=== PATIENT | female | born 1990 | race African-American/Black ===

== ENCOUNTER 2019-04-08 14:16 | Inpatient (IN) ==
[2019-04-08] MEDS ORDERED: hydrALAZINE 20 MG/1 ML VIAL IV PRN (15:22)
[2019-04-08] MEDS ORDERED: LACTATED RINGERS 500 ML IV PRN (15:22)
[2019-04-08] MEDS ORDERED: ONDANSETRON 4 MG/2 ML VIAL IV PRN (15:22)
[2019-04-08] MEDS ORDERED: LACTATED RINGERS 1,000 ML IV SCH (15:30)
[2019-04-08] MEDS: LACTATED RINGERS 1,000 ML IV SCH (15:37)
[2019-04-08 16:41] LABS: Basophils % 0.2 % (0.0-0.8); Eosinophils # 0.1 10*3/uL (0.0-0.87); Eosinophils % 1.4 % (0.00-10.9); Hematocrit 29.9 VOL% (35.7-47.0); Hemoglobin 9.8 GM/DL (12.0-16.0); Immature Granulocytes % 0.9 %; Immature Granulocytes Absolute 0.08 #; Lymphocytes # 1.5 10*3/uL (1.4-4.0); Lymphocytes % 16.6 % (21.3-54.2); Mean Corpuscular HGB Conc 32.8 GM/DL (32-36); Mean Corpuscular Volume 87.7 FL (87-102); Monocytes % 7.4 % (1.7-12.7); NRBC # 0.05 10*3/uL; Neutrophils % 73.5 % (38.7-73.9); Platelet Count 166 T/CUMM (130-400); Red Blood Count 3.41 MC/CUMM (3.8-5.5); Red Cell Distribution Width 13.2 % (9.3-17.3); White Blood Count 8.8 T/CUMM (4-12)
[2019-04-08 16:50] LABS: INR 0.9; PT Patient Result 9.3 SECS (9.6-12.2); Partial Thromboplastin Time 25.4 SECS (20.8-36.0)
[2019-04-08 17:08] LABS: Albumin 2.5 G/DL (3.4-5.0); Bilirubin,Direct 0.16 MG/DL (0.0-0.20); Bilirubin,Total 0.7 MG/DL (0.2-1.0); Calcium 8.4 MG/DL (8.5-10.1); Osmolality,Calculated 274.4 MOS/KG (273-304); Total Protein 6.7 G/DL (6.4-8.3); Uric Acid 7.6 MG/DL (2.6-6.0)
[2019-04-08] MEDS: MEPERIDINE 50 MG/1 ML VIAL IV PRN (19:40)
[2019-04-08] MEDS ORDERED: LABETALOL 200 MG TABLET PO SCH (21:00)
[2019-04-08] MEDS ORDERED: LABETALOL 100 MG TABLET ONE (21:38)
[2019-04-09] MEDS: LACTATED RINGERS 1,000 ML IV SCH ×2 (00:14→14:39)
[2019-04-09] MEDS ORDERED: OXYTOCIN/LR 20 UNIT/1,000 ML BAG IV ONE ×3 (02:09→18:23)
[2019-04-09] MEDS: ACETAMINOPHEN 500 MG TABLET PO PRN ×2 (02:58→11:30)
[2019-04-09] MEDS ORDERED: AMPICILLIN INJ 2,000 MG in SODIUM CHLORIDE 0.9% 100 ML IV ONE (04:00)
[2019-04-09] MEDS ORDERED: OXYTOCIN/LR 20 UNIT/1,000 ML BAG IV SCH (06:00)
[2019-04-09] MEDS: MEPERIDINE 50 MG/1 ML VIAL IV PRN (08:12)
[2019-04-09] MEDS: AMPICILLIN INJ 1,000 MG in SODIUM CHLORIDE 0.9% 100 ML IV SCH ×2 (08:17→12:52)
[2019-04-09] MEDS ORDERED: LABETALOL 100 MG TABLET PO SCH (09:00)
[2019-04-09] MEDS ORDERED: hydrALAZINE 20 MG/1 ML VIAL ONE (12:14)
[2019-04-09] MEDS ORDERED: diphenhydrAMINE 50 MG/1 ML VIAL IV PRN ×2 (12:15)
[2019-04-09] MEDS ORDERED: NALOXONE 0.4 MG/ML VIAL IV PRN (12:15)
[2019-04-09] MEDS ORDERED: ePHEDrine 50 MG/ML AMP IV PRN (12:15)
[2019-04-09] MEDS ORDERED: LACTATED RINGERS 1,000 ML IV ONE (12:15)
[2019-04-09] MEDS ORDERED: hydrALAZINE 20 MG/1 ML VIAL IV ONE ×3 (12:15→12:25)
[2019-04-09] MEDS ORDERED: CITRIC ACID/SODIUM CITRATE 30 ML UDCUP PO ONE (12:15)
[2019-04-09] MEDS ORDERED: FAMOTIDINE 20 MG/2 ML VIAL IV ONE (12:15)
[2019-04-09] MEDS ORDERED: fentaNYL 2 MCG/ROPIV 0.2% EPID 100 ML EPIDURAL SCH (12:30)
[2019-04-09 13:56] LABS: Apearance,Urine CLEAR (Clear); Bacteria,Urine Occasional /HPF (Few); Bilirubin,Urine Negative (Negative); Blood, Urine Negative (Negative); Glucose,Urine (UA) Negative (Negative); Ketones,Urine 5 mg/dL (Negative); Nitrite,Urine Negative (Negative); Protein,Urine Negative; RBC,Urine 1 /HPF (0-4); Squamous Epithelial Cell,Urine Occasional /HPF (0-10); Urine Color Straw (Yellow); Urine Specific Gravity 1.003 (1.001-1.035); Urine Urobilinogen < 2.0 EU/DL (0.2-1.0); WBC,Urine 1 /HPF (0-6)
[2019-04-09] MEDS ORDERED: miSOPROStol 200 MCG TABLET ONE (15:28)
[2019-04-09] MEDS ORDERED: LIDOCAINE 1% 50 ML VIAL ONE (15:28)
[2019-04-09] MEDS ORDERED: CARBOPROST TROMETHAMINE 250 MCG/ML AMP IM ONE (15:29)
[2019-04-09 16:24] LABS: Cord Venous Blood HCO3 22.9 MMOL/L; Cord Venous Blood PCO2 39.8 MMHG
[2019-04-09] MEDS ORDERED: BENZOCAINE 20%/MENTHOL 0.5% SPRAY 56 GM CAN TOP PRN (17:51)
[2019-04-09] MEDS ORDERED: HYDROCORTISONE 2.5% RECTAL CREAM 30 GM TUBE TOP PRN (17:51)
[2019-04-09] MEDS ORDERED: RHO(D) IMMUNE GLOBULIN 300 MCG SYRINGE IM ONE (17:51)
[2019-04-09] MEDS ORDERED: ACETAMINOPHEN 325 MG TABLET PO PRN (17:51)
[2019-04-09] MEDS ORDERED: DIPH/TET/ACEL PERT BOOSTER VACCINE 0.5 ML VIAL IM ONE (17:51)
[2019-04-09] MEDS ORDERED: MEASLES/MUMPS/RUBELLA VACCINE 0.5 ML VIAL SUBCUT ONE (17:51)
[2019-04-09] MEDS ORDERED: oxyCODONE/ACETAMINOPHEN 5-325 MG TABLET PO PRN ×2 (17:51)
[2019-04-09] MEDS ORDERED: WITCH HAZEL PADS 100/JAR TOP PRN (17:51)
[2019-04-09] MEDS ORDERED: LANOLIN 50% CREAM 0.3 OZ TUBE TOP PRN (17:51)
[2019-04-09] MEDS ORDERED: BISACODYL 10 MG SUPP RECTAL PRN (17:51)
[2019-04-09] MEDS ORDERED: PROMETHAZINE 25 MG/1 ML VIAL IM ONE (20:46)
[2019-04-09] MEDS ORDERED: MEPERIDINE 50 MG/1 ML VIAL IM ONE (20:46)
[2019-04-09] MEDS ORDERED: DOCUSATE SODIUM 100 MG CAPSULE PO SCH (21:00)
[2019-04-10] MEDS: IBUPROFEN 800 MG TABLET PO PRN ×2 (05:25→20:32)
[2019-04-10 05:32] LABS: Basophils % 0.3 % (0.0-0.8); Eosinophils # 0.1 10*3/uL (0.0-0.87); Eosinophils % 0.8 % (0.00-10.9); Hematocrit 28.5 VOL% (35.7-47.0); Hemoglobin 9.2 GM/DL (12.0-16.0); Immature Granulocytes % 0.5 %; Immature Granulocytes Absolute 0.05 #; Lymphocytes # 1.8 10*3/uL (1.4-4.0); Lymphocytes % 17.8 % (21.3-54.2); Mean Corpuscular HGB Conc 32.3 GM/DL (32-36); Mean Corpuscular Volume 89.1 FL (87-102); Mean Platelet Volume 12.9 FL (9.6-12.0); Monocytes % 8.3 % (1.7-12.7); NRBC # 0.09 10*3/uL; Neutrophils % 72.3 % (38.7-73.9); Platelet Count 164 T/CUMM (130-400); Red Cell Distribution Width 13.3 % (9.3-17.3); White Blood Count 9.8 T/CUMM (4-12)
[2019-04-10] MEDS ORDERED: FUROSEMIDE 40 MG/4 ML VIAL IV ONE (09:47)
[2019-04-10] MEDS ORDERED: ONDANSETRON 4 MG/2 ML VIAL IV PRN (18:49)
[2019-04-10] MEDS ORDERED: OXYTOCIN/LR 20 UNIT/1,000 ML BAG IV ONE (18:49)
[2019-04-10] MEDS ORDERED: MAGNESIUM HYDROXIDE SUSP 30 ML UDCUP PO PRN (18:49)
[2019-04-10] MEDS ORDERED: SIMETHICONE CHEW 80 MG TABLET PO PRN (18:49)
[2019-04-10] MEDS ORDERED: ACETAMINOPHEN 325 MG TABLET PO PRN (18:49)
[2019-04-10] MEDS ORDERED: RHO(D) IMMUNE GLOBULIN 300 MCG SYRINGE IM ONE (18:49)
[2019-04-10] MEDS ORDERED: LACTATED RINGERS 1,000 ML IV SCH (19:00)
[2019-04-10] MEDS ORDERED: ceFAZolin 1,000 MG in SYRINGE 1 EACH IV SCH (20:00)
[2019-04-10] MEDS: DOCUSATE SODIUM 100 MG CAPSULE PO SCH (20:30)
[2019-04-11] MEDS: IBUPROFEN 800 MG TABLET PO PRN ×2 (07:50)
[2019-04-11] MEDS ORDERED: MULTIVITAMIN (PRENATAL) TABLET PO SCH (09:00)
[2019-04-11] MEDS: DOCUSATE SODIUM 100 MG CAPSULE PO SCH (09:46)
[2019-04-11 10:40] VITALS: BP 129/88
== END 2019-04-11 13:35 | disposition home or self-care (01) | DRG 807 ==
LOC: N.LD 14:16 → N.OB 04-09 20:00
PROVIDERS: ADMIT Obstetrics & Gynecology; ATTEND Obstetrics & Gynecology